=== PATIENT | female | born 1990 | race Caucasian/White ===

== ENCOUNTER 2019-07-31 11:42 | Emergency (ER) | payer MEDICAID, SELFPAY ==
[2019-07-31 11:43] VITALS: BP 151/96; PULSE 82; RESP 16; TEMP 36.2; O2SAT 100; BMI 25.8
--- NOTE | 2019-07-31 11:59 | ED.VIS.FEGU ---
History of Present Illness Chief Complaint: Female C/O Informant: Patient - Vaginal Discharge Onset: Days - 5 Quality: [place], Foul smelling Severity: Light Associated Symptoms: Dysuria, Frequency, Hematuria - resolved. Negative for: Urgency, Missed Period Narrative: Patient states she recently had intercourse with a partner that tested positive for either gonorrhea or chlamydia she is not sure which 1. Now she has a discharge, dysuria, frequency. She had a couple episodes of blood when she wiped after urinating but that is gone. She denies any fevers, back pain, abdominal pain, nausea, vomiting. - Past Medical History (1) History of positive hepatitis C Status: Chronic (2) Migraines Status: Chronic Past Medical History - Allergies and Home Meds Allergies/Adverse Reactions: Allergies No Known Allergies Allergy (Verified 07/31/19 11:45) Primary Care Physician: Chayo Wallace MD [Primary Care Provider] - Lives: Alone Smoking Status: Former smoker Review of Systems General: Denies: Chills, Fever, Sweats Eyes: Denies: Visual changes - bilaterally, Diplopia Gastrointestinal: Denies: Abdominal pain, Nausea, Vomiting Genitourinary: Reports: Dysuria, Hematuria, Frequency Musculoskeletal: Denies: Back pain Skin: Denies: Rash, Wounds Physical Exam Vital Signs/Narrative: Vital Signs Temp Pulse Resp BP Pulse Ox 07/31/19 11:43 97.2 F L 82 16 151/96 H 100 Inital Vital Signs reviewed: Yes General: Well nourished, Well developed, - - Well-appearing, NAD Head: Normocephalic, Atraumatic Eyes: Perrl, EOMI Abdomen: Soft, Nontender, Nondistended, Normal bowel sounds Back: Nontender. Negative for: CVA tenderness Skin: Normal color, No rash Neurological: Alert, Oriented x3, Cranial nerves II-XII grossly intact, Normal Strength, Normal Sensation, Normal Gait Psychological: Normal affect, Normal Mood Diagnostic/Tx/Re-eval Laboratory Results 07/31/19 07/31/19 12:20 12:20 Urine Color Yellow Urine Clarity Sl. Cloudy Urine pH 7.0 Ur Specific [place] 1.010 Urine Protein Negative Urine Glucose (UA) Normal Urine Ketones Negative Urine Occult Blood Negative Urine Nitrite Negative Urine Bilirubin Negative Urine Urobilinogen Normal Ur Leukocyte Esterase 500 H Urine RBC 0 SEEN Urine WBC 25-50 SEEN Ur Squamous Epith Cells 0 SEEN Urine Bacteria 1+ Urine Mucus 0 SEEN Urine Test Negative - Treatment/Re-Evaluation Treatment: - - Rocephin IM 250 - Medical Decision/Diagnostic Studies GC and Chlamydia cultures sent: Yes Urinalysis shows 500 leukocyte esterace with pyuria. As I discussed with the patient, since she declined catheterization unknown if this represents a bladder infection or if we are seeing results of her discharge mixed with her urine. Given this, to cover her chlamydia I will prescribe her doxycycline for 1 week instead of the a azithromycin. If her culture comes back positive and for some bacteria other than chlamydia that is resistant to doxycycline, then a new prescription can be prescribed as appropriate. However hopefully this will cover all of her issues. She is comfortable with that overall plan. She declined pelvic exam, I think that is reasonable since what we are treating is fairly obvious and since she has no signs or symptoms of PID. If she returns and her discharge is not successfully treated, then I certainly would recommend doing a pelvic exam to look for other potential causes. ED Disposition - Plan for ED Patient: Disposition: Home or Assisted Living Diagnosis: STI (sexually transmitted infection), Dysuria Instructions: If You Think You Have an STD, ED Chlamydia GC Poss Culture Pend Prescriptions: Doxycycline Hyclate 100 mg PO BID #14 cap Transmission Status: Pending to [facility] [facility] Referrals: Chayo Wallace MD [Primary Care Provider] - As Needed
[2019-07-31 12:30] LABS: Mucous, Urine 0 SEEN /hpf (<or=2+); Red Blood Cells-Urine 0 SEEN /hpf (0-5); Squamous Epithelial Cells - UA 0 SEEN /hpf (5-10)
[2019-07-31 12:36] LABS: Internal QC Validated? YES +Cl - CLEAR BKGD; Pregnancy, Urine Negative Negative
[2019-07-31 12:40] LABS: Color, Urine Yellow (Yellow); Glucose, Dipstick Normal (Normal); Ketone-Dipstick Negative (Negative); Leukocyte Esterase-Dipstick 500 /ul (Negative); Nitrite-Dipstick Negative (Negative); Occult Blood-Urine Negative /ul (Negative); Protein-Dipstick Negative (Negative); Urine Bilirubin Dipstick Negative (Negative); Urine Clarity Sl. Cloudy (Clear); Urine Urobilinogen Normal (Normal)
[2019-07-31] MEDS: Ceftriaxone 500 MG Vial 250 MG IM (12:44)
[2019-07-31 12:47] LABS: Bacteria 1+ /hpf (None Seen); White Blood Cells 25-50 SEEN /hpf (0-5)
--- NOTE | 2019-07-31 13:41 | ED.RN ---
no reaction at injection site.
[2019-07-31 13:42] VITALS: BP 142/75; RESP 17
[2019-07-31 15:36] LABS: Chlamydia Trachomatis by PCR Negative (Negative); Neisserai gonorrhoeae by PCR Positive (Negative); Probe Check PASS
--- NOTE | 2019-07-31 16:07 | ED.RN ---
called pt to notify of positive results. pt denies further questions.
== END 2019-07-31 13:43 | disposition home or self-care (01) ==
PROVIDERS: Emergency Provider Emergency Medicine; PCP Internal Medicine
DX: A64 Unspecified sexually transmitted disease (principal); R30.0 Dysuria; Z87.891 Personal history of nicotine dependence; B19.20 Unspecified viral hepatitis C without hepatic coma
CPT/HCPCS: 81001; 81025; 87086; 87088; 87491; 87591; 96372; 99282

== ENCOUNTER 2020-06-03 05:05 | Inpatient (IN) | payer MEDICAID, SELFPAY ==
--- NOTE | 2020-06-02 | PLAC_PTH ---
PATIENT: CODY COPPOLA LOC: WP U#:[id number] AGE/SX: 30/F ROOM: WP003 RE06/03/[address]: Roxie Gill CNM : 1990 BED: 1 DIS: 06/04/2020 SPEC #: [id number] RECD: 06/03/20 07:41 STATUS: JOSHUA JOE #: [id number] ARUN: 06/02/20 00:[address]: Roxie Gill DEPT: SURGICAL PATHOLOGY RECD BY: John Bishop ENTERED: 06/03/20 09:22 SP TYPE: PLACENTA OTHR DR: Dr. Chayo Wallace MD Tissues: Placenta, NOS Procedures: Surgery Specimen Level V HEADER OPERATION: Vaginal delivery PRE-OP DIAGNOSIS: Poor care, history drug abuse TISSUE SUBMITTED: Placenta MICROSCOPIC DIAGNOSIS Gonsalez placenta (400 gm): Umbilical cord - trivascular with no inflammation. Placental membranes - acute deciduitis and acute chorionitis. Placental disc - remote infarct, Katia-Ricky change, mild chronic deciduitis. AM:cristian 06/07/2020 MICROSCOPIC DESCRIPTION Slides are reviewed. GROSS DESCRIPTION SPECIMEN: PLACENTA / CLINICAL INFORMATION: A. Weight: 2.725 kg B. Gestational Age: 37 weeks C. Sex: Male PLACENTAL WEIGHT (POST FIXATION): 400 gm PLACENTAL DIMENSIONS: 15 x 14 x 3 cm PLACENTAL SHAPE: Usual ovoid PLACENTAL WEIGHT FOR GESTATIONAL AGE: Within 10-99th percentile MEMBRANES - Present A. Insertion: Marginal B. Site of rupture from edge: 5.5 cm from edge of placental disc C. Color of membrane: Antunez-funk D. Abnormalities: None UMBILICAL CORD - Present A. Color: Antunez-funk B. Insertion: Eccentric C. Length: 27 cm D. Diameter: 1.3 cm E. Number of vessels: Three F. Abnormalities: None PLACENTAL DISC - Present A. Color of surface: Antunez-funk B. surface abnormalities: None C. Maternal cotyledons: Intact with minimal tears D. Attached retro placental clot: No clot E. Cut surface: Dark red and spongy F. Lesions: One antunez-white lesion measuring 2 x 1.7 x 1.2 cm G. Separate clot: Absent SECTIONS SUBMITTED: 1. Umbilical cord ( end notched) 2. Umbilical cord, placental end 3. Membrane roll, lesion 4. Placental disc, and maternal surfaces 5. Placental disc, and maternal surfaces 6. Placental disc, and maternal surfaces AM:cristian 06/06/20 TC:2 CPT: 25556
[2020-06-03] VITALS (16 sets, daily range): BP systolic 112–143; BP diastolic 64–99; PULSE 65–100; RESP 16; TEMP 36.5–37; O2SAT 88–97; BMI 26.9
[2020-06-03] MEDS: Oxytocin 10 UNITS/ML Vial IM (05:23)
--- NOTE | 2020-06-03 05:30 | PCM.OPRPT ---
Problem List (1) 37 weeks gestation of Status: Acute (2) Poor patient attendance of care Status: Acute (3) History of drug abuse Status: Acute (4) History of positive hepatitis C Status: Chronic Report of Operation Date of Procedure: 06/03/20 Vaginal Delivery Maternal Presentation: Active Labor, Spontaneous Rupture of Membranes Patient is a at 37.1 that presents to labor and delivery in spontaneous, active labor. Positive for contractions every 2-3 minutes and positive movement. Unsure of last OB appointment. Positive for chronic HEP C. Patient has had very limited care. She has a history of methamphetamine, heroine and marijuana use. Amniotic Membrane Rupture Type: Spontaneous Rupture of Membrane time: 05 Amniotic Fluid Description: Clear Final VANI: 06/23/20 Gestational age: 37 Weeks and 1 Days Date of Procedure: 06/03/20 Pre-Operative Diagnosis: Spontaneous labor Post-Operative Diagnosis: Precipitous delivery, term live male Surgery/ Procedure Performed: Spontaneous Vaginal Delivery - Precipitous delivery Type of Anesthesia: None Description of Procedure: Patient arrived to unit bearing down with contractions. S.R.O.M for clear fluid once transferred to room. Delivery of head with minimal maternal effort followed quickly by remainder of infant. Vigorous male placed on maternal abdomen and attended to by nursing staff. Pitocin IM administered for active management of the third stage. 3 vessel cord was clamped and cut by me after 2 minute delay. Cord blood collected. Infant placed immediately skin to skin with patient. Placenta delivered spontaneously and intact via Alva presentation. After inspection, no lacerations noted to vagina or perineum. Fundus firm 1 below U. Hemostasis occurred. EBL 300 cc. APGARS 8/9 Placenta sent to pathology due to limited care and history of drug use with pending toxicology screen. Dr. Ferrell notified of delivery Presentation: Vertex Placental Delivery Description: Spontaneous Placenta Disposition: Sent to Pathology Cord Vessel Description: 3 Vessels Cord Entanglement: None Estimated Blood Loss: 300 (1 minute): 8 (5 minute): 9 Episiotomy Description: None Laceration: None Medications given after delivery: - - IM Pitocin Complications: None
--- NOTE | 2020-06-03 05:30 | PCM.HP.OB ---
- Problem List (1) 37 weeks gestation of Status: Acute (2) Poor patient attendance of care Status: Acute (3) History of drug abuse Status: Acute (4) History of positive hepatitis C Status: Chronic (5) GBS bacteriuria Status: Acute History Date of Admission: 06/03/20 Final VANI: 06/23/20 Final VANI Source: US >20 weeks Gestational age: 37 Weeks and 1 Days History of this : This is a 30 year-old, G [4], P [3], at 37.1 weeks gestational age that presents in spontaneous, active labor. Patient has a history of poor care, drug use, chronic hepatitis c, and group beta strep positive in urine. Medical History: Medical History (Last Updated 04/05/17 @ 14:04 by Fern Varela) Murmur, cardiac (Chronic) R01.1 Migraines (Chronic) G43.909 History of positive hepatitis C (Chronic) Z86.19 Substance abuse F19.10 History of heroin abuse Surgical History: Surgical History (Last Updated 04/05/17 @ 14:04 by Fern Varela) none Allergies No Known Allergies Allergy (Verified 07/31/19 11:45) Home Medications: Home Medications Ferrous Sulfate 1 tab PO DAILY 06/03/20 Prenatabs FA 1 tab PO DAILY 06/03/20 Prilosec 1 tab PO DAILY 06/03/20 Smoking Status: Never smoker Substance Use Type: Heroin, Marijuana, Methamphetamine Number of Fetus(es): 1 NST - FHR Rate Baby A Baseline: 125 Variability:: Moderate - 12 History Past Pregnancies: Past Pregnancies Delivery Date Name GA/ Weeks Outcome Route Wt Infant Sex Labor Length Anesthesia Delivery Location Provider FOB Labs: O+ Rubella - immune HB- negative HC- POSITIVE, chronic RPR- NR HIV- NR GC/CH- negative GBS- positive in urine COVID- unknown Toxicology pending Expected Delivery Method: Spontaneous Vaginal Number of Visits: very limited Review of Systems Constitutional: Denies: Chills, Fever Eyes: Reports: Blurred vision HEENT: Denies: Head Aches Cardiovascular: Denies: Chest Pain Respiratory: Denies: Cough, Shortness of Breath Gastrointestinal: Reports: Abdominal Pain Psychiatric: Reports: Anxiety, Depression Physical Exam Vitals: Vital Signs Pulse BP Pulse Ox 100 136/65 H 88 06/03/20 05:28 06/03/20 05:28 06/03/20 05:16 General: Alert HEENT: Atraumatic Cardiovascular: Regular rate Lungs: Normal air movement Neurological: Cranial nerves II-XII grossly intact Assessment/Plan All Active Problems (Last Updated 04/05/17 @ 14:04 by Fern Varela) 37 weeks gestation of (Acute) Poor patient attendance of care (Acute) History of drug abuse (Acute) GBS bacteriuria (Acute) This is a 30 year-old, G [4], P [3], at 37.1 weeks gestational age that presents in spontaneous, active labor. Patient with limited care, history of drug use, chronic hepatitis C. Admit to labor and delivery Routine labs GBS positive in urine Toxicology screen Placenta to pathology Routine post care Consult to case management Dr. Ferrell is collaborating physician and notified of admission
[2020-06-03 06:24] LABS: Absolute Lymphocyte Count 1.19 X10^3/uL (0.83-4.51); Absolute Neutrophil Count 16.6 X10^3/uL (2.0-7.7); Basophil# 0.04 X10^3/uL; Basophil% 0.2 % (0-1); Eosinophil# 0.13 X10^3/uL; Eosinophils% 0.7 % (0-5); Hematocrit 32.4 % (37-47); Hemoglobin 11.1 g/dL (12.0-15.0); Lymphocyte # 1.19 X10^3/ul (4.0); Lymphocyte % 6.3 % (19-41); Mean Corp Hgb Conc 34.3 g/dL (32-36); Mean Corpuscular Hgb 29.7 pg (27.0-32.0); Mean Corpuscular Volume 86.6 fL (81-99); Mean Platelet Vol. 10.8 fl (6.2-12.0); Monocyte# 0.87 X10^3/uL; Monocyte% 4.6 % (0-10); NRBC Flagged by Analyzer 0 % (0-5); Neutrophil # 16.62 X10^3/uL (2.7-7.7); Neutrophil % 87.3 % (47-70); Platelet Count 276 K/mm3 (150-450); RBC Distribution Width CV 13.6 % (11.6-14.6); RBC Distribution Width SD 41.9 fl (35.1-43.9); Red Blood Count 3.74 M/mm3 (4.2-5.4)
[2020-06-03 07:08] LABS: Amphetamine Urine VISTA NEGATIVE (<1000 ng/mL); Barbiturate Urine VISTA NEGATIVE (< 200 ng/mL); Benzodiazepine Urine VISTA NEGATIVE (< 200 ng/mL); Cocaine Urine VISTA NEGATIVE (< 300 ng/mL); Ecstacy Urine VISTA NEGATIVE (< 500 ng/mL); Methadone Urine VISTA NEGATIVE (< 300 ng/mL); PCP Urine VISTA NEGATIVE (< 25 ng/mL); THC Urine VISTA POSITIVE (< 50 ng/mL); Vista UDS pH Range 7
[2020-06-03 07:43] LABS: Pathology Specimen OB SEE PATHOLOGY REPORT
[2020-06-03] MEDS: Ibuprofen 600 MG Tablet PO ×2 (10:29→22:58)
--- NOTE | 2020-06-03 13:00 | CASEMGMT ---
Social Work Assessment Labor and Delivery Unit Patient Address: [address] [place] [address] Phone number: [phone] Date of Referral: 06.03.2020 Time of Referral: 629 Referred By: Roxie Gill, certified nurse operator coating furnace Date of Intervention: 06/03/2020 Time of Intervention: 1300 Reason for Referral: Poor care, history of drug use, precipitous delivery, uncertain of custody of other children. History obtained from: Medical records and mother of baby (MOB) Paula Vera Household composition: MOB reports of baby (FOB) and their children. As conversation went on it was reported that MOB and FOB have been staying in [facility], and just recently within the last month purchased a house over in [facility] [place]. MOB reported they have not officially moved yet to [place] [facility] [place]. MOB provided an address of [address] [place] [address] in which they will eventually be moving to. Patient's parent/guardian status: NUZHAT is a 30-year-old single female involved with FOB Greg Sam (age 29) for the last 2 years. MOB denies any type of violence or safety issues in this relationship. Paxton baby is the first child for MOB and FOB together. MOB has a total of 4 children now, of which MOB reports to have custody of and the children live with MOB. The FOB, including the , has 6 children. 4 of the FOB is older children are involved with the FOB and those children ranging in ages from 11-3: Margaret, Laneah, Jose, and Roslyn (other child with no involvement is Huber). MOB minor children include: Evens Vera, born 7.5.2008 Hal Vera, born 4.30.2012 Raghu Aldana, born 6.30.2016 Paxton baby Chasity Sam, born 06.03.2018 Medical History: NUZHAT is 4, para 3 now 4 after delivering Chasity. care started late between 16 and 21 weeks. MOB with a history of hepatitis C. Delivery was precipitous. delivered at 37 weeks gestation weighing 6 pounds even. Apgars 8 and 9 at 1 and 5 minutes of life. Educational Status: MOB with a high school education. Reports to be able to read, write, and no issues with learning comprehension. Financial Status: NUZHAT reports she was working at [employer] in [place]. Certain what employment will be after maternity leave. 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 Infant Supplies: MOB reports to have needed baby supplies including a bassinet, car seat, clothing, diapers, wipes, bottles. Reports ability to purchase formula. Childcare/Caregiver(s): MOB plans to be the primary caregiver. 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 Programs/Agencies Involved: NUZHAT has medical through [facility] job and family services. Reports plan to apply for WIC. Reports agreement for help me grow services. Active with Thanh at [facility] for counseling. Children Services/Legal Issues: NUZHAT denies any current legal charges, or probation. Does have a history of such however. NUZHAT does have a history of [facility] children services after the of her last child who was substance exposed in utero. Behavioral Health Issues: Mental Health History: NUZHAT has a history of depression and anxiety diagnosed in 2017. MOB denies any current depression. Denies any history of suicidal ideations, intent, planning, or action. Substance Use History: NUZHAT has a long history of marijuana usage and was reportedly using every day until realization of . One placed in the record indicates last use was 8 months ago. NUZHAT did test positive for marijuana upon admission, which the MOB attributes to accidentally eating some edibles went over at a friend's home. MOB reports to this television writer that the edible usage was 2 months ago. MOB denies that she has used any other substances during such as alcohol, heroin, methamphetamines, cocaine, or other narcotic type medications. Denies using any tobacco. MOB reports to talk to her counselor about once a week, but this is based on what the MOB believe she needs so the phone appointments do not actually occur every week. Family History: Record indicates that MOB maternal grandmother has a history of alcohol use issues. Drug Screens: MOB with a positive drug screen for marijuana on 02/17/2020 and again at delivery on 06/03/2020. Baby's urine drug screen is also positive for marijuana. Meconium is pending. Family/Social Stressors: NUZHAT reports she and the FOB just purchased a home in [place], and have not even been able to move yet. Family has been living in [facility] with various family members. Maternal substance use present during and maternal history of depression and anxiety. Support Systems: MOB endorses her sister and her mother as primary support systems. Depression/Shaken Baby/Safe Sleeping formation provided on shaken baby prevention, safe sleeping, and mood and anxiety disorders. ASSESSMENT: Met with the MOB in room and introduced to social work role. MOB voices to remember this television writer from prior deliveries at [facility]. Baby laying on the bed beside the MOB during social work visit. MOB with good eye contact and bright affect. MOB spontaneous with conversation though observed slight change in affect to more constricted when the topic of drugs was discussed, and need for children services referral. Educated MOB to need to call children services due to baby being substance exposed in utero and positive at time of delivery. MOB accepted this information without issue. MOB does report to have needed baby supplies to care for the infant. Agrees to help me grow referral and reports plan to apply for [facility]. MOB reports to feel connection with the baby and denies any concerns for home-going. MOB uses her mother and grandmother's home for mailing address, and often stays there. MOB actually arrived to [facility] with her grandmother, who was support person present during time of delivery. MOB reports the FOB was unable to be present at the hospital due to caring for the father children and ensuring they were getting off to school. Safe Plan of Care for related to substance use: Abstain from further marijuana use. Continue with counseling at [facility]. PLAN: MOB and baby to discharge home this weekend. Referral to [facility] and Children Services to be made. Provided MOB with WIC applications, [facility] and [facility] resources lists, and packet on mood and anxiety disorders. -CAROL Ng, OYSTER BUYER *Information documented in this assessment generated with [employer]*
--- NOTE | 2020-06-03 14:00 | CASEMGMT ---
Social Work Labor and Delivery Unit Referral to Breana Burton at [facility] ([facility]), , extension [phone]. Referral due to substance exposed infant in utero, including positive drug screens for mom and baby at time of delivery. Brief maternal and infant histories provided, including Maternal history of polysubstance use and past history of children services involvement. Breana aware of discharge to occur over the weekend. [facility] will make phone contact with the MOB. Updated MOB that this [facility] will likely be reaching out. MOB denies any other needs or concerns. Plan: MOB and baby to discharge home. [facility] will be following in the community. MOB has been given resources for home going. [facility] referral to be made. -GUSTAVO Ng, FACILITY MAINTENANCE MECHANIC
[2020-06-04 04:30] VITALS: BP 119/78; PULSE 66; RESP 16; TEMP 36.5
[2020-06-04 07:48] VITALS: BP 119/75; PULSE 66; RESP 16; TEMP 36.7
[2020-06-04] MEDS: Ibuprofen 600 MG Tablet PO (08:10)
--- NOTE | 2020-06-04 09:25 | PCM.PN.OB ---
Patient Problems: Active and Suspected Problems (Last Updated 04/05/17 @ 14:04 by Fern Varela) 37 weeks gestation of (Acute) Poor patient attendance of care (Acute) History of drug abuse (Acute) GBS bacteriuria (Acute) Subjective: pt seen at bedside, doing well. pt reports good pain control. lochia mild. Bottle feeding. Voiding w/o difficulty. - Physical Exam Vitals/I&O's: Vital Signs Temp Pulse Resp BP Pulse Ox 98.1 F 66 16 119/75 97 06/04/20 07:48 06/04/20 07:48 06/04/20 07:48 06/04/20 07:48 06/03/20 07:24 Oxygen Delivery Method Room Air Weight: 62.596 kg Body Mass Index (BMI) 26.9 Intake and Output for Last 24 Hours 06/02/20 06/03/20 06/04/20 23:59 23:59 23:59 Output Total 150 / 150 Balance -150 / -150 General: Alert, Oriented x3 Abdomen: Soft, Non Tender, Non-Distended, - - fundus firm Current Medications Acetaminophen (Acetaminophen 500 Mg Tablet) 1,000 mg PO Q8H PRN PRN PRN Reason: Pain Score 1-3 Bisacodyl (Bisacodyl 10 Mg Suppository) 10 mg RECTAL UD PRN PRN Reason: If no BM Dibucaine (Dibucaine 30 Gm Tube) 1 applic TOPICAL TID PRN PRN; Protocol PRN Reason: Discomfort Hydrocortisone (Hydrocortisone 2.5% Crm) 1 applic TOPICAL TID PRN PRN; Protocol PRN Reason: Discomfort Ibuprofen (Ibuprofen 600 Mg Tablet) 600 mg PO Q6H PRN PRN PRN Reason: Pain Score 1-3 Last Admin: 06/04/20 08:10 Dose: 600 mg Documented by: Methylergonovine Maleate (Methylergonovine 0.2 Mg/Ml Ampul) 0.2 mg IM X1 PRN PRN Reason: Excess bleeding/uterine atony Ondansetron HCl (Ondansetron 4 Mg/2 Ml Vial) 4 mg IV Q4H PRN PRN PRN Reason: Nausea Oxytocin (Oxytocin 10 Units/Ml Vial) 10 units IM X1 BROOKE Last Admin: 06/04/20 06:26 Dose: Not Given Documented by: Senna/Docusate Sodium (Senna/Docusate Sodium 1 Tablet) 1 - 2 tablet PO DAILY PRN PRN PRN Reason: Constipation Simethicone (Simethicone 80 Mg Tablet) 80 mg PO PCHS PRN PRN Reason: Indigestion/Stomach pain Sodium Chloride (0.9% Saline Lock 10 Ml Syringe) 5 - 15 ml IV UD PRN PRN Reason: SALINE FLUSH Medical Necessity - Tobacco Use Smoking Status: Former smoker Assessment/Plan All Active Problems (Last Updated 04/05/17 @ 14:04 by Fern Varela) 37 weeks gestation of (Acute) Poor patient attendance of care (Acute) History of drug abuse (Acute) GBS bacteriuria (Acute) PPD#1, doing well routine care pain mgmt dc home
--- NOTE | 2020-06-04 09:30 | DCINST_ITS ---
Discharge Diet: No Restrictions Discharge Activity: Return to Normal Activity, May not drive while taking narcotic pain medications., May Shower May resume sexual activity in: 4-6 weeks Additional Activity Instructions:: Nothing in the vagina for 4-6 weeks. You may return to work/school in 6 weeks. Call your doctor if your incision/area has: Continuous Slow Oozing, Sudden Increased Bleeding, Increased Pain/ Swelling, Increased Redness, Foul Smelling Discharge Additional Instructions: If you experience any of the following, contact your healthcare provider. * Bleeding that soaks a pad every hour for 2 hours * Fever 100.4 or higher * Unrelieved incision or abdominal pain * Swelling, redness, discharge or bleeding from your incision or episiotomy site * Your incision begins to separate * Problems urinating (including inability to urinate or burning while urinating). * Visual changes * Severe headache * Flu-like symptoms * Pain or redness in one of both of your breasts * Pain, warmth, tenderness or swelling in your legs, especially the calf area * Frequent nausea and vomiting * Symptoms of depression or anxiety If you experience any of the following, call 911 or go to the nearest Emergency Room. * Chest pain * Problems breathing * Seizure activity * Partial or complete paralysis of a body part, slurred speech, weakness or drooping of the face, or a sudden inability to walk or hold your balance Allergies/Adverse Reactions: Allergies No Known Allergies Allergy (Verified 06/03/20 05:34) Medications to take at Discharge Ferrous Sulfate 1 tab PO DAILY 06/03/20 Prenatabs FA 1 tab PO DAILY 06/03/20 Ibuprofen [Motrin] 600 mg PO Q6H PRN PRN #30 tab 06/04/20 The following prescriptions were given: Ibuprofen [Motrin] 600 mg PO Q6H PRN PRN #30 tab PRN Reason: Pain Score 1-3 Transmission Status: Pending to [facility] When: Call to make an appointment with your doctor in 2 weeks and again at 6 weeks. . Primary Care Physician: Chayo Wallace MD [Primary Care Provider] - Test Results: Test results from this visit will be discussed in further detail at your follow- up appointment, if applicable.
[2020-06-04 14:20] VITALS: BP 127/85; PULSE 82; RESP 16; TEMP 36.7; O2SAT 98
--- NOTE | 2020-06-06 17:15 | CASEMGMT ---
Social Work Labor and Delivery Unit Help Me Grow referral completed via [facility] secure web based referral system. -GUSTAVO Ng, PRODUCE WEIGHER
== END 2020-06-04 17:25 | disposition home or self-care (01) | DRG 560 ==
PROVIDERS: Admitting Provider Advanced Practice Midwife; PCP Internal Medicine; Visit Provider Advanced Practice Midwife
DX: O62.3 Precipitate labor (principal); B18.2 Chronic viral hepatitis C; O98.42 Viral hepatitis complicating childbirth; O99.824 Streptococcus B carrier state complicating childbirth; Z37.0 Single live birth; Z3A.37 37 weeks gestation of pregnancy; Z87.891 Personal history of nicotine dependence
CPT/HCPCS: 59025; 59050; 80307; 85025; 86850; 86900; 86901; 88307; 99218; G0378